=== PATIENT | female | born 1950 | race Caucasian/White ===

== ENCOUNTER 2017-02-23 06:15 | Inpatient (IN) | payer OTHER ==
[~2017-02-23] VITALS: Ht 165.1 cm; Wt 67.0 kg
[2017-02-23] VITALS (40 sets, daily range): BP systolic 107–147; BP diastolic 60–92; PULSE 56–95; RESP 9–28; Ht 165.1 cm; Wt 67.0 kg
[~2017-02-23 06:15] MED LIST: BUPIVACAINE 0.5% (SDV) 30 ML, morphine SULFATE (PF) 8 MG, EPINEPHrine 0.3 MG, KETOROLAC... IRR SCH; CEFAZOLIN 2 GM/50 ML (PMX) 50 ML IVPB ONE; DEXAMETHASONE 1 MG TAB PO ONE; GABAPENTIN 300 MG CAP PO ONE; TRANEXAMIC ACID 1,000 MG in SOD CHLORIDE 0.9% 100 ML IVPB ONE
[2017-02-23] MEDS ORDERED: ONDANSETRON 4 MG INJ IV PRN (06:30)
[2017-02-23] MEDS ORDERED: DIPHENHYDRAMINE 50 MG INJ IV PRN ×2 (06:30→10:30)
[2017-02-23] MEDS ORDERED: hydrALAzine 20 MG INJ IV PRN (06:30)
[2017-02-23] MEDS ORDERED: OXYCODONE/ACETAMINOPHEN (5/325) TAB PO PRN ×4 (06:30→10:30)
[2017-02-23] MEDS ORDERED: HYDROmorphONE (0.2 MG/ML) 10ML SYG IV PRN ×3 (06:30)
[2017-02-23] MEDS ORDERED: FENTAnyl 50 MCG/ML VIAL IV PRN (06:30)
[2017-02-23] MEDS ORDERED: ATROPINE 1 MG/10 ML SYRINGE IV PRN (06:30)
[2017-02-23] MEDS ORDERED: MIDAZOLAM 1 MG/ML 2 ML INJ IV PRN (06:30)
[2017-02-23] MEDS ORDERED: EPHEDrine SULFATE 50 MG/5 ML SYG IV PRN (06:30)
[2017-02-23] MEDS ORDERED: MEPERIDINE 25 MG INJ IV PRN (06:30)
[2017-02-23] MEDS ORDERED: LABETALOL HCL 20MG INJ IV PRN (06:30)
[2017-02-23] MEDS ORDERED: morphine (1 MG/ML) 10ML SYRINGE IV PRN ×3 (06:30)
--- NOTE | 2017-02-23 06:34 | HPN ---
Date/Time of Note Date/Time of Note DATE: 02/23/17 TIME: 06:34 Interval H&P Admission Note Pt. seen H&P reviewed: No system changes JOSE LUIS BARBOSA MD Feb 23, 2017 06:34
[2017-02-23] MEDS ORDERED: SUGAMMADEX SODIUM 200 MG/2 ML VIAL IV ONE (07:00)
[2017-02-23] MEDS ORDERED: GABAPENTIN 300 MG CAP ONE (07:38)
[2017-02-23] MEDS ORDERED: DEXAMETHASONE 2 MG TAB ONE ×2 (07:38→07:42)
[2017-02-23] MEDS ORDERED: DEXAMETHASONE 1 MG TAB ONE (07:43)
[2017-02-23] MEDS ORDERED: PROPOFOL 20 ML ONE (07:58)
[2017-02-23] MEDS ORDERED: NEOSTIGMINE 3 MG/3 ML SYRINGE ONE (07:58)
[2017-02-23] MEDS ORDERED: DEXAMETHASONE 4 MG/ML 1 ML INJ ONE (07:58)
[2017-02-23] MEDS ORDERED: LIDOCAINE 2% (SDV) 5 ML INJ ONE (07:58)
[2017-02-23] MEDS ORDERED: FENTAnyl 50 MCG/ML VIAL ONE (07:58)
[2017-02-23] MEDS ORDERED: GLYCOPYRROLATE 0.4 MG INJ ONE (07:58)
[2017-02-23] MEDS ORDERED: MIDAZOLAM 1 MG/ML 2 ML INJ ONE (07:58)
[2017-02-23] MEDS ORDERED: ROCURONIUM 50 MG INJ ONE (07:58)
[2017-02-23] MEDS ORDERED: ONDANSETRON 4 MG INJ ONE (07:59)
[2017-02-23] MEDS ORDERED: LIDOCAINE 1% (STERILE-PAK) 30 ML INJ ONE (09:06)
[2017-02-23] MEDS ORDERED: BUPIVACAINE 0.5%/EPI (SDV) 30 ML INJ ONE (09:06)
[2017-02-23] MEDS ORDERED: THROMBIN 5000 UNIT VIAL ONE (09:07)
[2017-02-23] MEDS ORDERED: CA CHLORIDE 10% 10 ML SYRINGE ONE (09:07)
[2017-02-23] MEDS ORDERED: TRIAMCINOLONE ACET 40 MG/ML INJ ONE (09:07)
[2017-02-23] MEDS ORDERED: POLYMYXIN/BACITRACIN 1L IRRIG ONE (09:07)
[2017-02-23] MEDS ORDERED: VANCOMYCIN 1 GM (PMX) 250 ML ONE (09:14)
--- NOTE | 2017-02-23 10:24 | OPR ---
Date/Time of Note Date/Time of Note DATE: 02/23/17 TIME: : Operative Report Procedure Date: Feb 23, 2017 Preoperative Diagnosis Abductor tendon tear, right hip Postoperative Diagnosis 1. abductor tendon tear, right hip 2. Right hip chronic trochanteric bursitis 3. Left shoulder arthritis Operation/Procedure Performed 1. Right hip open abductor tendon repair 2. Right hip open trochanteric bursectomy 3. Left shoulder injection of cortisone Surgeon see signature line Leather Worker Timothy Magaña MD Anesthesia Type: general Estimated Blood Loss: 10 - 50 ml's Transfusion none Specimen None Grafts/Implants none Complications none Pt Condition Post Procedure: stable Disposition: PACU Procedure Description GARMENT INSPECTOR SURGEON: Timothy Magaña MD was asked to be present at my request as a result of the complexity associated with this procedure including positioning of the extremity, positioning of the instrumentation and protection of the neurovascular structures. In my opinion, the assistance offered by a certified surgical assistant is insufficient and Dr. Magaña should be compensated for his time. PROCEDURE IN DETAIL: Following the administration of general endotracheal anesthesia supplemented with a local anesthetic, the patient was placed in the supine position. The left shoulder was then prepped with alcohol and Betadine. The joint was then injected with 80 mg of Kenalog and 2 cc of 1% lidocaine. A sterile dressing was applied. The patient was then repositioned in a left lateral decubitus position all prominences were properly padded and an axillary fold placed. The right lower extremity was then prepped and draped in the usual sterile fashion. The area was infiltrated as indicated above with a local anesthetic cocktail. A lateral incision was then made exposing the area of the iliotibial band. The iliotibial band was then incised and a window was created over the posterior third of the trochanter. Severe bursal reactive tissue was noted. This tissue was then excised and a bursectomy was completed. The area of the abductor tendon was then palpated and softening was noted in the anterior portion. A longitudinal incision was then made exposing the area of abductor tendinopathy and partial tearing. The tendinopathy and partial tear were debrided down to stable tissue. The area was then cleared of devitalized tissue in a bleeding bed created. A 5.5 mm triple loaded anchor was then impacted into the greater trochanter. The abductor tendon was then repaired with the sutures. A watertight closure was completed of that area. The wound was irrigated thoroughly. The wound was then closed in layers and a Prenio for the final cover. This was watertight. Estimated blood loss was procedure was [] cc. COMPLICATIONS: [] PT. CONDITION POST PROCEDURE: [] DISPOSITION: [] JOSE LUIS BARBOSA MD Feb 23, 2017 10:24
--- NOTE | 2017-02-23 10:25 | PDOCDIS ---
Discharge Instructions DIAGNOSIS Discharge Diagnosis Abductor tendon tear with left shoulder arthritis CONDITION Patient Condition: Good HOME CARE INSTRUCTIONS: Diet Instructions: Regular ACTIVITY: Activity Restrictions: Slowly Increase Activity Keep Limb Elevated FOLLOW UP/APPOINTMENTS Follow-up Plan 10 days after surgery in the office SCHOOL/WORK RELEASE May return to School/Work with: With Restrictions School/Work Release Comment: Foot flat weightbearing for 4 weeks JOSE LUIS BARBOSA MD Feb 23, 2017 10:25
[2017-02-23] MEDS ORDERED: TRANEXAMIC ACID 1,000 MG in SOD CHLORIDE 0.9% 100 ML IV ONE (10:30)
[2017-02-23] MEDS ORDERED: morphine 2 MG INJ IV PRN (10:30)
[2017-02-23] MEDS ORDERED: morphine 4 MG/ML VIAL IV PRN (10:30)
[2017-02-23] MEDS ORDERED: KETOROLAC 15 MG INJ IV PRN (10:30)
[2017-02-23] MEDS ORDERED: ZOLPIDEM 5 MG TAB PO PRN (10:30)
[2017-02-23] MEDS ORDERED: MAGNESIUM HYDROXIDE 30ML CUP PO PRN (10:30)
[2017-02-23] MEDS ORDERED: ACETAMINOPHEN 500 MG TAB PO PRN (10:30)
[2017-02-23] MEDS: FENTAnyl 50 MCG/ML VIAL IV PRN ×2 (10:48→11:14)
[2017-02-23] MEDS: DEXAMETHASONE 2 MG TAB PO SCH ×2 (13:53→18:38)
[2017-02-23] MEDS: CEFAZOLIN 1 GM/50 ML (PMX) 50 ML IVPB SCH ×2 (14:56→18:37)
[2017-02-23] MEDS: LACTATED RINGER'S 1,000 ML IV SCH ×2 (15:11→20:13)
[2017-02-23] MEDS: ONDANSETRON 4 MG INJ IV PRN (18:44)
[2017-02-23] MEDS: SENNA/DOCUSATE NA (8.6MG/50MG) TAB PO SCH (20:11)
[2017-02-23] MEDS ORDERED: GABAPENTIN 300 MG CAP PO SCH (21:00)
[2017-02-24] MEDS: DEXAMETHASONE 2 MG TAB PO SCH ×2 (00:05→04:41)
[2017-02-24 00:09] VITALS: BP 105/60; PULSE 70; RESP 18
[2017-02-24] MEDS: CEFAZOLIN 1 GM/50 ML (PMX) 50 ML IVPB SCH (03:05)
[2017-02-24 04:30] VITALS: BP 101/57; PULSE 68; RESP 18
[2017-02-24] MEDS: LACTATED RINGER'S 1,000 ML IV SCH (05:13)
--- NOTE | 2017-02-24 05:49 | PN ---
Date/Time of Note Date/Time of Note DATE: 02/24/17 TIME: 05:48 24 hour Interval Summary Patient is awake and alert with no complaints. Physical Exam Physical examination: She is neurologically intact. Her wound is clean and dry. She has no signs of DVT. Vital Signs Date Time Temp Pulse Resp B/P Pulse Ox O2 Delivery O2 Flow Rate FiO2 02/24/17 04:30 97.4 68 18 101/57 95 Nasal Cannula 2.0 Intake and Output 02/23/17 02/23/17 02/24/17 15:00 23:00 07:00 Intake Total 840 ml 500 ml 2000 ml Output Total 670 ml 1300 ml Balance 170 ml 500 ml 700 ml VTE Prophylaxis VTE Prophylaxis Intervention: anti-embolic stocking Lines/Catheters IV Catheter Type: Saline Lock Andrews in Place: No Assessment/Plan Assessment/Plan Assessment/plan: She will be discharged following ambulation this morning follow -up in 2 weeks. Medications Medications Home Meds No Active Prescriptions or Reported Meds JOSE LUIS BARBOSA MD Feb 24, 2017 05:49
--- NOTE | 2017-02-24 05:49 | DS ---
Date/Time of Note Date/Time of Note DATE: 02/24/17 TIME: 05:49 Discharge Summary Admission/Discharge Info Admit Date/Time Feb 23, 2017 at 10:19 Discharge Date/Time February 24, 2017 following therapy Discharge Diagnosis Abductor tendon tear with left shoulder arthritis Patient Condition: Good Procedures Open bursectomy and abductor repair Hx of Present Illness Chronic pain over her right shoulder and hip. Hospital Course Admitted underwent surgery then went home following observation overnight Home Meds No Active Prescriptions or Reported Meds Follow-up Plan 10 days after surgery in the office Primary Care Provider Not On Staff Doctor JOSE LUIS BARBOSA MD Feb 24, 2017 05:49
[2017-02-24 07:00] VITALS: BP 97/54; RESP 18
[2017-02-24] MEDS: ONDANSETRON 4 MG INJ IV PRN (07:54)
[2017-02-24] MEDS ORDERED: ASPIRIN 81 MG TAB PO SCH (09:00)
[2017-02-24] MEDS: SENNA/DOCUSATE NA (8.6MG/50MG) TAB PO SCH (09:00)
== END 2017-02-24 12:47 | disposition home or self-care (01) | DRG 502 ==
LOC: SDS 06:15 → REC 10:19 → SDS 10:19 → MS1 16:10
PROVIDERS: ADMIT Orthopaedic Surgery; ATTEND Orthopaedic Surgery
PROC: 0MBL0ZZ Excision of Right Hip Bursa and Ligament, Open Approach (ICD-10-PCS; 2017-02-23)
PROC: 3E0U33Z Introduction of Anti-inflammatory into Joints, Percutaneous Approach (ICD-10-PCS; 2017-02-23)
PROC: 0LMJ0ZZ Reattachment of Right Hip Tendon, Open Approach (ICD-10-PCS; principal; 2017-02-23 09:00)
DX: S86.211A Strain of muscle(s) and tendon(s) of anterior muscle group at lower leg level, right leg, initial encounter (principal); G89.29 Other chronic pain; M70.61 Trochanteric bursitis, right hip; M19.011 Primary osteoarthritis, right shoulder
CPT/HCPCS: 86999; 97116; 97162; J0171; J0690; J0735; J1100; J1885; J2250; J2270; J2274; J2405; J2710; J3010; J3370; J7120

== ENCOUNTER 2017-04-13 08:35 | Inpatient (IN) | payer OTHER, MEDICARE ==
[2017-04-13] VITALS (23 sets, daily range): BP systolic 117–156; BP diastolic 72–89; PULSE 82–97; RESP 7–20; Ht 165.1 cm; Wt 68.6 kg
[~2017-04-13] VITALS: Ht 165.1 cm; Wt 68.6 kg
--- NOTE | 2017-04-13 06:49 | HPN ---
Date/Time of Note Date/Time of Note DATE: 04/13/17 TIME: 06:48 Interval H&P Admission Note Pt. seen H&P reviewed: No system changes JOSE LUIS BARBOSA MD Apr 13, 2017 06:48
[~2017-04-13 08:35] MED LIST changes: -CEFAZOLIN 2 GM/50 ML (PMX) 50 ML IVPB ONE; +SUCCINYLCHOLINE CHLORIDE 100 MG/5 ML SYG IV ONE; +VANCOMYCIN 1 GM (PMX) 250 ML IVPB ONE; +traMADol 50 MG TAB PO ONE
[2017-04-13] MEDS ORDERED: GLYCOPYRROLATE 0.4 MG INJ ONE ×2 (12:28→14:06)
[2017-04-13] MEDS ORDERED: PROPOFOL 20 ML ONE ×2 (12:28→14:06)
[2017-04-13] MEDS ORDERED: ROCURONIUM 50 MG INJ ONE ×2 (12:28→14:06)
[2017-04-13] MEDS ORDERED: NEOSTIGMINE 3 MG/3 ML SYRINGE ONE ×2 (12:28→14:06)
[2017-04-13] MEDS ORDERED: MIDAZOLAM 1 MG/ML 2 ML INJ ONE ×2 (12:29→14:06)
[2017-04-13] MEDS ORDERED: FENTAnyl 50 MCG/ML VIAL ONE ×2 (12:29→14:06)
[2017-04-13] MEDS ORDERED: LIDOCAINE 2% (SDV) 5 ML INJ ONE ×2 (12:29→14:06)
[2017-04-13] MEDS ORDERED: ROPIVACAINE 0.5 % 30 ML VIAL ONE (12:30)
[2017-04-13] MEDS ORDERED: DEXAMETHASONE 4 MG/ML 1 ML INJ ONE (12:39)
[2017-04-13] MEDS ORDERED: ONDANSETRON 4 MG INJ ONE (14:08)
[2017-04-13] MEDS ORDERED: POLYMYXIN/BACITRACIN 1L IRRIG ONE (14:16)
[2017-04-13] MEDS ORDERED: CA CHLORIDE 10% 10 ML SYRINGE ONE (14:23)
[2017-04-13] MEDS ORDERED: THROMBIN 5000 UNIT VIAL ONE (14:23)
--- NOTE | 2017-04-13 16:07 | PDOCDIS ---
Discharge Instructions DIAGNOSIS Discharge Diagnosis Primary shoulder arthritis CONDITION Patient Condition: Good HOME CARE INSTRUCTIONS: Diet Instructions: Regular ACTIVITY: Activity Restrictions: Slowly Increase Activity Keep Limb Elevated FOLLOW UP/APPOINTMENTS Follow-up Plan 2 weeks SCHOOL/WORK RELEASE May return to School/Work with: With Restrictions School/Work Release Comment: 5 pounds tabletop usage for 6 weeks JOSE LUIS BARBOSA MD Apr 13, 2017 16:07
--- NOTE | 2017-04-13 16:07 | OPR ---
Date/Time of Note Date/Time of Note DATE: 04/13/17 TIME: 16:05 Operative Report Procedure Date: Apr 13, 2017 Preoperative Diagnosis Left shoulder primary arthritis Postoperative Diagnosis Left shoulder primary arthritis Operation/Procedure Performed Left total shoulder arthroplasty Surgeon see signature line Campus Security Officer Yossi Awan MD Anesthesia Type: general Estimated Blood Loss: 50 - 100 ml's Transfusion none Specimen None Grafts/Implants none Complications none Pt Condition Post Procedure: stable Disposition: PACU Procedure Description RESEARCH PHLEBOTOMIST SURGEON: Yossi Awan MD was asked to be present for this case at my request. Assistance was necessary as a result of the highly technical nature of this operation. When performing an open total shoulder replacement, it is critical to have a trained veterinary assistant technician who is an expert in handling the extremity and assisting the surgeon in tasks such as suture management and knot- tying techniques as well as implants. This assistance cannot be performed by a electrostatic powder coating technician, as it is considered an integral part of the procedure and the veterinary assistant technician should be compensated for their time. PROCEDURE IN DETAIL: Following the administration of general anesthesia supplemented with a peripheral nerve block for postoperative pain control, the patient was examined under anesthesia. Examination of the left shoulder revealed very significant stiffness including a forward flexion of about 80 abduction 70 maximal external rotation 35 with severe crepitus. The patient was then placed in the beach chair position. Sterile prep and drape was then undertaken. An extended deltopectoral incision was then carried through the interval exposing the conjoined tendon and retracting it medially. The subscapularis was incised and mobilized. Severe arthritic changes were noted with very large peripheral osteophytes. Multiple loose bodies were removed from the joint. The biceps tendon was identified and it had moderate fraying within the groove. The intra-articular portion was resected and the biceps was tenodesed to the bicipital groove with solid fixation using multiple #2 sutures. A humeral head osteotomy was then created in the appropriate degree of version and inclination. The humerus was retracted and the glenoid was exposed. Peripheral osteophytes were removed and a complete capsulectomy performed. The central canal of the glenoid was then entered and prepared for a size small Depuy anchor peg glenoid. A Depuy anchor peg glenoid was then cemented into position with solid fixation. The humerus was then reamed and prepared for a 12 mm humeral component with a 48 x 15 mm humeral head. The actual components were implanted with solid fixation. The subscapularis was reapproximated using #2 sutures that were passed circumferentially around the humerus with a watertight closure of the interval. The arm was taken through full range of motion with no evident instability. The joint was then thoroughly irrigated, the deep tissues were approximated using #1 suture followed by closure of the deep layer using 2-0 Monocryl. The skin was closed using 4-0 Monocryl suture, and a Prenio dressing. An Ultrasling was then applied. The patient was awakened and transported to the recovery room in stable condition. Estimated blood loss for this procedure was 100 cc. Radiographs will be obtained in the recovery room. TRANSFUSION REQUIRED: [] SPECIMENS: [] GRAFTS/IMPLANTS: [] TUBES/DRAINS: [] COMPLICATIONS: [] PT. CONDITION POST PROCEDURE: [] DISPOSITION: [] JOSE LUIS BARBOSA MD Apr 13, 2017 16:07
[2017-04-13] MEDS ORDERED: morphine 2 MG INJ IV PRN (16:30)
[2017-04-13] MEDS ORDERED: ZOLPIDEM 5 MG TAB PO PRN (16:30)
[2017-04-13] MEDS ORDERED: DIPHENHYDRAMINE 50 MG INJ IV PRN (16:30)
[2017-04-13] MEDS ORDERED: KETOROLAC 15 MG INJ IV PRN (16:30)
[2017-04-13] MEDS ORDERED: MAGNESIUM HYDROXIDE 30ML CUP PO PRN (16:30)
[2017-04-13] MEDS ORDERED: morphine 4 MG/ML VIAL IV PRN (16:30)
[2017-04-13] MEDS ORDERED: OXYCODONE/ACETAMINOPHEN (5/325) TAB PO PRN (16:30)
[2017-04-13] MEDS ORDERED: TRANEXAMIC ACID 1,000 MG in SOD CHLORIDE 0.9% 100 ML IV ONE (16:30)
[2017-04-13] MEDS ORDERED: ACETAMINOPHEN 500 MG TAB PO PRN (16:30)
--- NOTE | 2017-04-13 16:48 | RADRPT ---
PROCEDURE: XR Left Shoulder. CLINICAL INDICATION: Left shoulder pain. Postop. TECHNIQUE: Two views. Frontal and oblique. COMPARISON: No prior study is available for comparison. FINDINGS: There is a left humeral head prosthesis. This appears satisfactory. There is no fracture, dislocation, or loosening. Gas is present in the soft tissues related to the recent surgery. IMPRESSION: 1. Satisfactory postoperative appearance of the left shoulder. RPTAT: QQ .Lewis Miles MD, MD Date Time Electronically viewed and signed by .Lewis Miles MD, MD on 04/13/2017 16:48 .R/
[2017-04-13] MEDS: VANCOMYCIN 500MG/NS (PMX) 100 ML IVPB SCH (18:01)
[2017-04-13] MEDS: DEXAMETHASONE 2 MG TAB PO SCH ×2 (18:06→23:55)
[2017-04-13] MEDS: SENNA/DOCUSATE NA (8.6MG/50MG) TAB PO SCH (21:50)
[2017-04-13] MEDS: GABAPENTIN 300 MG CAP PO SCH (21:50)
[2017-04-13] MEDS: ONDANSETRON 4 MG INJ IV PRN (22:30)
[2017-04-14 00:17] VITALS: BP 143/91; RESP 20
[2017-04-14] MEDS: DEXAMETHASONE 2 MG TAB PO SCH ×2 (06:20→12:57)
[2017-04-14] MEDS: VANCOMYCIN 500MG/NS (PMX) 100 ML IVPB SCH (06:20)
--- NOTE | 2017-04-14 06:55 | DS ---
Date/Time of Note Date/Time of Note DATE: 04/14/17 TIME: 06:55 Discharge Summary Admission/Discharge Info Admit Date/Time Apr 13, 2017 at 09:38 Discharge Date/Time April 15, 2017 Discharge Diagnosis Primary shoulder arthritis Patient Condition: Good Hospital Course Patient was admitted and underwent a uncomplicated procedure. On postoperative day #1 she was awake and alert. She had a significant headache and nausea. She was observed an additional day and discharged on April 15, 2017. He will be followed up in the office in 2 weeks. Home Meds No Active Prescriptions or Reported Meds Follow-up Plan 2 weeks Primary Care Provider Not On Staff Doctor JOSE LUIS BARBOSA MD Apr 14, 2017 06:55
--- NOTE | 2017-04-14 06:55 | PN ---
Date/Time of Note Date/Time of Note DATE: 04/14/17 TIME: 06:53 24 hour Interval Summary Mark is awake and alert. She has some very mild pain. However, she has a significant headache and significant nausea this morning. She has not started physical therapy. Physical Exam Physical examination: She is awake and alert. Her wound is clean and dry. She is neurologically intact. There are no signs of DVT. Vital Signs Date Time Temp Pulse Resp B/P Pulse Ox O2 Delivery O2 Flow Rate FiO2 04/14/17 00:17 97.8 95 20 143/91 94 04/13/17 18:10 Nasal Cannula 2.0 Intake and Output 04/13/17 04/13/17 04/14/17 15:00 23:00 07:00 Intake Total 1300 ml 350 ml Output Total 360 ml 400 ml Balance 940 ml -50 ml VTE Prophylaxis VTE Prophylaxis Intervention: SCD's Lines/Catheters IV Catheter Type: Saline Lock Andrews in Place: No Assessment/Plan Assessment/Plan Assessment: Status post total shoulder replacement Plan: She will begin physical therapy this morning. We will monitor her and she may have to stay one more night as a result of the significant nausea and headache. Medications Medications Home Meds No Active Prescriptions or Reported Meds JOSE LUIS BARBOSA MD Apr 14, 2017 06:55
[2017-04-14 07:28] VITALS: BP 107/62; PULSE 74; RESP 16
[2017-04-14] MEDS: ONDANSETRON 4 MG INJ IV PRN ×2 (08:04→14:41)
[2017-04-14] MEDS: ASPIRIN 81 MG TAB PO SCH (08:56)
[2017-04-14] MEDS: SENNA/DOCUSATE NA (8.6MG/50MG) TAB PO SCH ×3 (08:56→21:28)
[2017-04-14 14:37] VITALS: BP 110/64; RESP 18
[2017-04-14] MEDS: GABAPENTIN 300 MG CAP PO SCH ×2 (21:00→21:28)
[2017-04-14] MEDS: OXYCODONE/ACETAMINOPHEN (5/325) TAB PO PRN (21:28)
[2017-04-14 21:43] VITALS: BP 135/61; RESP 20
[2017-04-15 03:35] VITALS: BP 125/71; RESP 18
[2017-04-15 08:19] VITALS: BP 113/70; RESP 18
[2017-04-15] MEDS: ASPIRIN 81 MG TAB PO SCH (08:54)
[2017-04-15] MEDS: OXYCODONE/ACETAMINOPHEN (5/325) TAB PO PRN (08:54)
[2017-04-15] MEDS: SENNA/DOCUSATE NA (8.6MG/50MG) TAB PO SCH (08:54)
--- NOTE | 2017-04-15 10:55 | PN ---
Date/Time of Note Date/Time of Note DATE: 04/15/17 TIME: 10:52 Assessment/Plan VTE Prophylaxis VTE Prophylaxis Intervention: ambulation, SCD's Lines/Catheters IV Catheter Type (from Nrsg): Saline Lock Urinary Cath still in place: No Assessment/Plan Assessment/Plan 66yo F s/p Right total shoulder arthroplasty on 04/13/17 currently doing well. The patient should continue on po pain meds and ice prn. She should remain NWB RUE in sling. Dressing to remain in place. We will plan on discharging her home today and schedule for post-op follow-up as an outpatient. Subjective 24 Hr Interval Summary Free Text/Dictation Patient resting comfortably in bed this morning in no acute distress. She reports pain is well controlled and nausea has subsided. She is requesting to be discharged home today. Constitutional: no complaints Respiratory: no complaints Cardiovascular: no complaints Neurologic: no complaints Exam/Review of Systems Vital Signs Vitals Vital Signs Date Time Temp Pulse Resp B/P Pulse Ox O2 Delivery O2 Flow Rate FiO2 04/15/17 08:19 98.3 76 18 113/70 93 04/13/17 18:10 Nasal Cannula 2.0 Intake and Output 04/14/17 04/14/17 04/15/17 15:00 23:00 07:00 Intake Total 100 ml 1000 ml 600 ml Output Total 1100 ml Balance 100 ml -100 ml 600 ml Medications Medications Current Medications Senna/Docusate Sodium (Senokot-S) 1 tab BID PO Last administered on 04/15/17 08:54; Admin Dose 1 TAB; Start 04/13/17 at 21:00 Simethicone (Mylicon) 80 mg TID PRN PO DISTENSION/GAS/BLOATING Last administered on 04/15/17 08:54; Admin Dose 80 MG; Start 04/13/17 at 16:30 Magnesium Hydroxide (Milk Of Mag) 30 ml BID PRN PO CONSTIPATION; Start at 16:30 Acetaminophen (Tylenol Tab) 1,000 mg Q4H PRN PO TEMP GREATER THAN 100.4F; Start 04/13/17 at 16:30 Gabapentin (Neurontin) 300 mg HS PO Last administered on 04/14/17 21:28; Admin Dose 300 MG; Start 04/13/17 at 21:00 Oxycodone/ Acetaminophen (Percocet (5/ 325)) 1 tab Q4H PRN PO PAIN LEVEL 1-5; Start 04/13/17 at 16:30 Oxycodone/ Acetaminophen (Percocet (5/ 325)) 2 tab Q4H PRN PO PAIN LEVEL 6-10 Last administered on 04/15/17 08:54; Admin Dose 2 TAB; Start 04/13/17 at 16:30 Morphine Sulfate (morphine) 2 mg Q2H PRN IV PAIN LEVEL 1-5; Start 04/13/17 at 16:30 Morphine Sulfate (morphine) 4 mg Q4H PRN IV PAIN LEVEL 6-10; Start 04/13/17 at 16:30 Ketorolac Tromethamine (Toradol) 15 mg Q6H PRN IV PAIN; Start 04/13/17 at 16:30 ; Stop 04/16/17 at 16:29 Ondansetron HCl (Zofran Inj) 4 mg Q6H PRN IV NAUSEA AND/OR VOMITING Last administered on 04/14/17 14:41; Admin Dose 4 MG; Start 04/13/17 at 16:30 Diphenhydramine HCl (Benadryl) 25 mg Q6H PRN IV PRURITUS; Start 04/13/17 at 16: 30 Aspirin (Aspirin) 81 mg DAILY PO Last administered on 04/15/17 08:54; Admin Dose 81 MG; Start 04/14/17 at 09:00 COURTNEY PALUMBO MD Apr 15, 2017 10:55
== END 2017-04-15 11:25 | disposition home or self-care (01) | DRG 483 ==
LOC: EDSTATUS 09:00 → REC 09:38 → MS1 17:46
PROVIDERS: ADMIT Orthopaedic Surgery; ATTEND Orthopaedic Surgery
PROC: 0RRK0JZ Replacement of Left Shoulder Joint with Synthetic Substitute, Open Approach (ICD-10-PCS; principal; 2017-04-13 15:00)
DX: M19.012 Primary osteoarthritis, left shoulder (principal); R51 Headache; R11.0 Nausea
CPT/HCPCS: 73030; 86999; 97110; 97165; 97535; C1713; C1776; J0171; J0735; J1100; J1885; J2250; J2274; J2405; J2710; J2795; J3010; J3370